=== PATIENT | female | born 1955 | race Caucasian/White ===

== ENCOUNTER → 2019-11-09 10:46 | Outpatient (CLI) | payer OTHER, SELFPAY ==
--- NOTE | ~2019-11-09 | MM_ITS ---
EXAMINATION: MM screening [facility] BI w emilie HISTORY: Screening mammogram TECHNIQUE: Craniocaudal and mediolateral oblique 3-D tomosynthesis images were obtained and synthetic 2-D images were generated. CAD analysis was submitted and interpreted. COMPARISON: 07/13/2018, 07/07/2017 bilateral digital screening mammogram examinations BREAST PARENCHYMAL COMPOSITION: There are scattered areas of fibroglandular density. FINDINGS: Stable mild fibroglandular asymmetry, likely related to history of prior benign right breas t biopsies. There is no evidence of suspicious mass, calcification, or architectural distortion to nunez ggest malignancy in either breast. There has been no suspicious interval change. IMPRESSION: 1. No mammographic evidence of malignancy. 2. Recommend routine screening mammography in one year. BI-RADS Category 2: Benign finding(s). Reviewed, dictated and finalized at location A.
--- NOTE | ~2019-11-09 | DEXA_ITS ---
Bone Density Report Name: Sonya Villarreal Age: 64 Sex: Female Ethnicity: White Date of : 1955 Indication: osteopenia; height loss; postmenopausal Referring Provider: JUDD TRINIDAD Study: Bone densitometry was performed. Exam Date: November 09, 2019 Accession number: [id number] Bone Density: Region BMD T-score Z-score Classification AP Spine (L1-L4) 0.878 -1.5 0.2 Osteopenia Femoral Neck (Left) 0.686 -1.5 0.0 Osteopenia Total Hip (Left) 0.757 -1.5 -0.3 Osteopenia Femoral Neck (Right) 0.685 -1.5 0.0 Osteopenia Total Hip (Right) 0.764 -1.5 -0.3 Osteopenia Total Hip Mean 0.761 -1.5 -0.3 Osteopenia World Health Organization criteria for BMD impression classify patients as: Normal (T-score at or above -1.0), Osteopenia (T-score between -1.0 and -2.5), or Osteoporosis (T-score at or below -2.5). 10-year Fracture Risk(1): Major Osteoporotic Fracture 8.6% Hip Fracture 0.8% Reported Risk Factors: [place] (), Neck BMD=0.685, BMI=25.0 (1) FRAX(R) Version 3.08. Fracture probability calculated for an untreated patient. Fracture probability may be lower if the patient has received treatment. Previous Exams: Region Exam Age BMD T-score BMD Change BMD Change Date g/cm2 vs Baseline vs Previous AP Spine(L1-L4) 11/09/2019 64 0.878 -1.5 0.048* -0.052* 07/07/2017 61 0.929 -1.1 0.100* 0.038* 07/02/2015 59 0.891 -1.4 0.062* -0.034* 06/19/2012 56 0.925 -1.1 0.096* 0.039* 06/03/2010 54 0.887 -1.5 0.057* 0.057* 05/24/2008 52 0.829 -2.0 Total Hip(Left) 11/09/2019 64 0.757 -1.5 -0.051* -0.080* 07/07/2017 61 0.837 -0.9 0.029* 0.011 07/02/2015 59 0.825 -1.0 0.018 -0.031* 06/19/2012 56 0.856 -0.7 0.049* 0.040* 06/03/2010 54 0.817 -1.0 0.009 0.009 05/24/2008 52 0.808 -1.1 Total Hip(Right) 11/09/2019 64 0.764 -1.5 -0.039* -0.051* 07/07/2017 61 0.816 -1.0 0.012 -0.006 07/02/2015 59 0.821 -1.0 0.018 -0.002 06/19/2012 56 0.823 -1.0 0.020 0.013 06/03/2010 54 0.811 -1.1 0.007 0.007 05/24/2008 52 0.803 -1.1 *Denotes significance at 95% confidence level, LSC for AP Spine = 0.022 g/cm2, LSC for Total Hip = 0.027 g/cm2 Clinical Information Provided by Patient:
== END ==
PROVIDERS: Visit Provider Obstetrics & Gynecology Gynecology
DX: Z12.31 Encounter for screening mammogram for malignant neoplasm of breast (principal); Z78.0 Asymptomatic menopausal state; M85.88 Other specified disorders of bone density and structure, other site; M85.852 Other specified disorders of bone density and structure, left thigh; M85.851 Other specified disorders of bone density and structure, right thigh
CPT/HCPCS: 77063; 77067; 77080

== ENCOUNTER 2020-04-30 14:40 | Emergency (ER) | payer OTHER, SELFPAY ==
--- NOTE | ~2020-04-30 | XR_ITS ---
EXAMINATION: XR ankle LT min 3V DATE: 04/30/2020 14:51 INDICATION: Left ankle pain. TECHNIQUE: 4 views of left ankle were obtained. COMPARISON: Left ankle radiographs 02/26/2014 FINDINGS: Bone alignment is normal. No fracture. Joint spaces are well maintained. IMPRESSION: 1. No fracture. Reviewed, dictated and finalized at location A. IMPRESSION: 1. No fracture.
--- NOTE | 2020-04-30 14:49 | ED.LOWEXIN ---
HPI - Extremity Injury (Lower) General Chief Complaint: Extremity Injury, Lower Stated Complaint: L ANKLE INJURY Time Seen by Provider: 04/30/20 14:49 Source: patient and RN notes reviewed History of Present Illness HPI Narrative: Patient is 64-year-old female who presents the urgent care with complaints of left ankle pain and swelling. 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 Patient states that she rolled the left ankle and did hit her head on a cabinet. Patient states that initially she felt some nausea and lightheadedness which is since subsided. Patient denies of any headache, loss of consciousness, nausea or vomiting. States that she put ice on the injury but has not taken anything oral for pain. Patient states the incident occurred at 1230 and she was able to drive herself to the facility. No other acute complaints or injuries. No acute distress noted. Patient aware of the plan of care. Some parts of this dictation were generated by voice recognition software and may contain typographical and/or grammatical inaccuracies. Related Data Home Medications Medication Instructions Recorded Confirmed ergocalciferol (vitamin D2) 04/30/20 fluticasone propionate [Flonase] 1 spray INTRANASAL BID 04/30/20 04/30/20 Allergies Allergy/AdvReac Type Severity Reaction Status Date / Time No Known Allergies Allergy Unverified 06/02/17 09:02 Review of Systems Review of Systems: Narrative: CONSTITUTIONAL: Denies fever, chills, or sweats. EYES: Denies visual changes, redness, or discharge. ENT: Denies rhinorrhea, congestion, sore throat, or otalgia. CARDIOVASCULAR: Denies chest pain, palpitations, or edema. RESPIRATORY: Denies cough or dyspnea. GASTROINTESTINAL: Denies abdominal pain, nausea, vomiting, or diarrhea. GENITOURINARY: Denies dysuria or hematuria. SKIN: Denies rash or itching. MUSCULOSKELETAL: Reports of left ankle pain and swelling NEUROLOGIC: Denies headache, numbness, or weakness. All other systems reviewed are negative, except as documented in HPI. PMFSH Comments At the time of my signature, I reviewed and agree with the nursing past medical, surgical, social, and family history. There is no relevant family history pertinent to the patient complaint. Exam Narrative: Exam Narrative: GENERAL: This is a well-nourished, well-developed patient, in no apparent distress. HEAD: normocephalic, atraumatic. EYES: PERRL. Sclera clear/white. Vision is grossly intact. EARS: External ears normal NOSE: External nose normal with no obvious nasal discharge, nares without redness, no rhinorrhea. THROAT: Mucous membranes moist NECK: Neck supple SKIN: warm, intact with no suspicious lesions or rash, good texture and turgor. NEURO: awake, alert, and oriented to person, place and time. There were no obvious focal neurologic abnormalities. EXTREMITIES: Mild to moderate edema without ecchymosis, erythema or notable deformity to the left lateral malleolus. Range of motion within normal limits with mild exacerbated pain on left lower extremity flexion. Ambulation within normal limits. Positive strong left pedal pulse with capillary refill less than 2 seconds. Course Vital Signs Vital signs: Vital Signs Temperature 97 F L 04/30/20 14:50 Pulse Rate 87 04/30/20 14:50 Respiratory Rate 16 04/30/20 14:50 Blood Pressure 120/61 04/30/20 14:50 Pulse Oximetry 100 04/30/20 14:50 Temperature 97 F L 04/30/20 14:50 Pulse Rate 87 04/30/20 14:50 Respiratory Rate 16 04/30/20 14:50 Blood Pressure 120/61 04/30/20 14:50 Pulse Oximetry 100 04/30/20 14:50 Reviewed MDM - Extremity Injury (Lower) MDM Narrative Medical decision making narrative: Reviewed x-ray results with the patient. Patient is aware that there is no bone abnormality or fracture. Advised patient to keep the foot elevated and use ice/Tylenol/ibuprofen as needed for pain and comfort. Avoid any strenuous activit
[2020-04-30 14:50] VITALS: BP 120/61; PULSE 87; RESP 16; TEMP 36.1; O2SAT 100
== END 2020-04-30 15:09 | disposition home or self-care (01) ==
PROVIDERS: Emergency Provider Nurse Practitioner Family
DX: S93.402A Sprain of unspecified ligament of left ankle, initial encounter (principal); S96.912A Strain of unspecified muscle and tendon at ankle and foot level, left foot, initial encounter; W01.0XXA Fall on same level from slipping, tripping and stumbling without subsequent striking against object, initial encounter; Y99.0 Civilian activity done for income or pay
CPT/HCPCS: 73610; 99213; G0463

== ENCOUNTER → 2020-11-27 07:13 | Outpatient (CLI) | payer OTHER, SELFPAY ==
--- NOTE | ~2020-11-27 | MM_ITS ---
EXAMINATION: MM screening [facility] BI w emilie HISTORY: Screening TECHNIQUE: Craniocaudal and mediolateral oblique 3-D tomosynthesis images were obtained and synthetic 2-D images were generated. CAD analysis was submitted and interpreted. COMPARISON: Comparison to multiple prior studies sequentially, with oldest reviewed study dated 07/06. BREAST PARENCHYMAL COMPOSITION: There are scattered areas of fibroglandular density. FINDINGS: There is no evidence of suspicious mass, calcification, or architectural distortion to sugg est malignancy in either breast. There has been no suspicious interval change. IMPRESSION: 1. No mammographic evidence of malignancy. 2. Recommend routine screening mammography in one year. BI-RADS Category 1: Negative Reviewed, dictated and finalized at location A.
== END ==
PROVIDERS: Visit Provider Nurse Practitioner
DX: Z12.31 Encounter for screening mammogram for malignant neoplasm of breast (principal)
CPT/HCPCS: 77063; 77067

== ENCOUNTER → 2021-11-27 07:28 | Outpatient (CLI) | payer OTHER, SELFPAY ==
--- NOTE | ~2021-11-27 | MM_ITS ---
EXAMINATION: MM screening [facility] BI w emilie HISTORY: Screening TECHNIQUE: Craniocaudal and mediolateral oblique 3-D tomosynthesis images were obtained and synthetic 2-D images were generated. CAD analysis was submitted and interpreted. COMPARISON: Comparison to multiple prior studies sequentially, with oldest reviewed study dated 07/06. BREAST PARENCHYMAL COMPOSITION: There are scattered areas of fibroglandular density. FINDINGS: There is a focal asymmetry posteriorly and laterally in the right breast on CC view. The le ft breast is stable without evidence for malignancy. IMPRESSION: 1. Focal right breast asymmetry located posteriorly and laterally on the CC view. 2. Recommend right exaggerated cc view with spot views and mediolateral view. Possible additional rig ht breast ultrasound. BI-RADS Category 0: Incomplete: Needs additional imaging evaluation. Reviewed, dictated and finalized at location A. IMPRESSION: 1. Focal right breast asymmetry located posteriorly and laterally on the CC vie w. 2. Recommend right exaggerated cc view with spot views and mediolateral view. P ossible additional right breast ultrasound. BI-RADS Category 0: Incomplete: Needs additional imaging evaluation.
== END ==
PROVIDERS: PCP Hospitalist; Visit Provider Obstetrics & Gynecology Gynecology
DX: Z12.31 Encounter for screening mammogram for malignant neoplasm of breast (principal); R92.8 Other abnormal and inconclusive findings on diagnostic imaging of breast
CPT/HCPCS: 77063; 77067

== ENCOUNTER → 2021-12-14 07:41 | Outpatient (CLI) | payer OTHER, SELFPAY ==
--- NOTE | ~2021-12-14 | MM_ITS ---
EXAMINATION: MM diagnostic [facility] RT w emilie HISTORY: Follow-up right breast asymmetry TECHNIQUE: Additional 3-D tomosynthesis images of the right breast were performed and synthetic 2-D i mages were generated. CAD analysis was submitted and interpreted. COMPARISON: 11/27/2021 BREAST PARENCHYMAL COMPOSITION: Breast composition is almost entirely fatty FINDINGS: There are no suspicious masses, calcifications or architectural distortion in the right rose ast to suggest malignancy. The focal asymmetry corresponds to the pectoralis muscle, best seen on exa ggerated cc view. IMPRESSION: 1. No mammographic evidence for malignancy in the right breast. 2. Routine yearly screening mammogram and regular clinical breast examination are recommended. BI-RADS Category 1: Negative Reviewed, dictated and finalized at location A. IMPRESSION: 1. No mammographic evidence for malignancy in the right breast. 2. Routine yearly screening mammogram and regular clinical breast examination a re recommended. BI-RADS Category 1: Negative
== END ==
PROVIDERS: PCP Hospitalist; Visit Provider Obstetrics & Gynecology Gynecology
DX: R92.8 Other abnormal and inconclusive findings on diagnostic imaging of breast (principal)
CPT/HCPCS: 77061; 77065; G0279

== ENCOUNTER → 2022-01-15 08:44 | Outpatient (CLI) | payer OTHER, SELFPAY ==
--- NOTE | ~2022-01-15 | DEXA_ITS ---
Bone Density Report Name: SUSAN AVENDAÑO Age: 66 Sex: Female Ethnicity: White Date of : 1955 Indication: osteopenia; postmenopausal Referring Provider: JUDD TRINIDAD Study: Bone densitometry was performed. Exam Date: January 15, 2022 Accession number: [id number] Bone Density: Region BMD T-score Z-score Classification AP Spine (L1-L4) 0.834 -1.9 -0.1 Osteopenia Femoral Neck (Left) 0.633 -1.9 -0.4 Osteopenia Total Hip (Left) 0.755 -1.5 -0.2 Osteopenia Femoral Neck (Right) 0.685 -1.5 0.1 Osteopenia Total Hip (Right) 0.760 -1.5 -0.2 Osteopenia Total Hip Mean 0.758 -1.5 -0.2 Osteopenia World Health Organization criteria for BMD impression classify patients as: Normal (T-score at or above -1.0), Osteopenia (T-score between -1.0 and -2.5), or Osteoporosis (T-score at or below -2.5). 10-year Fracture Risk(1): Major Osteoporotic Fracture 10% Hip Fracture 1.6% Reported Risk Factors: [place] (), Neck BMD=0.633, BMI=29.2 (1) FRAX(R) Version 3.08. Fracture probability calculated for an untreated patient. Fracture probability may be lower if the patient has received treatment. Previous Exams: Region Exam Age BMD T-score BMD Change BMD Change Date g/cm2 vs Baseline vs Previous AP Spine(L1-L4) 01/15/2022 66 0.834 -1.9 0.005 -0.043* 11/09/2019 64 0.878 -1.5 0.048* -0.052* 07/07/2017 61 0.929 -1.1 0.100* 0.038* 07/02/2015 59 0.891 -1.4 0.062* -0.034* 06/19/2012 56 0.925 -1.1 0.096* 0.039* 06/03/2010 54 0.887 -1.5 0.057* 0.057* 05/24/2008 52 0.829 -2.0 Total Hip(Left) 01/15/2022 66 0.755 -1.5 -0.052* -0.001 11/09/2019 64 0.757 -1.5 -0.051* -0.080* 07/07/2017 61 0.837 -0.9 0.029* 0.011 07/02/2015 59 0.825 -1.0 0.018 -0.031* 06/19/2012 56 0.856 -0.7 0.049* 0.040* 06/03/2010 54 0.817 -1.0 0.009 0.009 05/24/2008 52 0.808 -1.1 Total Hip(Right) 01/15/2022 66 0.760 -1.5 -0.043* -0.004 11/09/2019 64 0.764 -1.5 -0.039* -0.051* 07/07/2017 61 0.816 -1.0 0.012 -0.006 07/02/2015 59 0.821 -1.0 0.018 -0.002 06/19/2012 56 0.823 -1.0 0.020 0.013 06/03/2010 54 0.811 -1.1 0.007 0.007 05/24/2008 52 0.803 -1.1 *Denotes significance at 95% confidenc
== END ==
PROVIDERS: PCP Hospitalist; Visit Provider Obstetrics & Gynecology Gynecology
DX: Z78.0 Asymptomatic menopausal state (principal); M85.88 Other specified disorders of bone density and structure, other site; M85.852 Other specified disorders of bone density and structure, left thigh; M85.851 Other specified disorders of bone density and structure, right thigh
CPT/HCPCS: 77080

== ENCOUNTER 2022-09-08 15:11 | Outpatient (CLI) | payer OTHER, SELFPAY ==
[2022-09-08 17:18] LABS: Basophils Absolute Auto 0.1 K/mm3 (0.0-0.1); Eosinophils Absolute Auto 0.1 K/mm3 (0-0.3); Hematocrit 42.1 % (37.0-47.0); Immature Granulocyte Absolute 0.02 K/mm3 (0.00-0.031); Immature Granulocyte Percent A 0.3 % (0-0.5); Lymphocytes Absolute Auto 1.82 K/mm3 (0.9-3.2); Lymphocytes Percent Auto 25.9 % (18.3-44.2); Mean Corpuscular HGB Conc 33.3 g/dl (32-36); Mean Corpuscular Volume 93.3 fl (80-100); Mean Platelet Volume 9.1 fl (7.4-10.4); Monocytes Absolute Auto 0.6 K/mm3 (0.1-0.6); Monocytes Percent Auto 8.4 % (2.6-8.5); Neutrophils Absolute Auto 4.4 K/mm3 (1.3-6.7); Neutrophils Percent Auto 62.4 % (45.5-73.1); Platelet Count Result 306 k/mm3 (150-375); Red Blood Count 4.51 M/mm3 (4.2-5.4); Red Cell Distribution Width 12.5 % (11.5-14.5)
[2022-09-12 22:06] LABS: Lyme Disease Ab (IgM), Blot Negative (Negative); Lyme Disease Ab(IgG), Blot Negative (Negative)
== END 2022-09-08 15:12 | disposition home or self-care (01) ==
PROVIDERS: PCP Hospitalist; Visit Provider Hospitalist
DX: R20.2 Paresthesia of skin (principal); R91.1 Solitary pulmonary nodule
CPT/HCPCS: 36415; 85025; 86617

== ENCOUNTER → 2022-11-30 07:18 | Outpatient (CLI) | payer OTHER, SELFPAY ==
--- NOTE | ~2022-11-30 | MM_ITS ---
EXAMINATION: MM screening [facility] BI w emilie HISTORY: Screening TECHNIQUE: Craniocaudal and mediolateral oblique 3-D tomosynthesis images were obtained and synthetic 2-D images were generated. CAD analysis was submitted and interpreted. COMPARISON: Comparison to multiple prior studies sequentially, with oldest reviewed study dated 07/07. BREAST PARENCHYMAL COMPOSITION: The breasts are almost entirely fatty. FINDINGS: Partial visualization of the right pectoralis muscle noted on CC view laterally with simila r appearance to 11/27/2021 and 11/27/2020. There is no evidence of suspicious mass, calcification, or architectural distortion to suggest malignancy in either breast. There has been no suspicious interv al change. IMPRESSION: 1. No mammographic evidence of malignancy. 2. Recommend routine screening mammography in one year. BI-RADS Category 1: Negative Reviewed, dictated and finalized at location A.
== END ==
PROVIDERS: PCP Hospitalist; Visit Provider Nurse Practitioner
DX: Z12.31 Encounter for screening mammogram for malignant neoplasm of breast (principal)
CPT/HCPCS: 77063; 77067

== ENCOUNTER 2023-12-23 07:38 | Outpatient (CLI) | payer OTHER, SELFPAY ==
--- NOTE | ~2023-12-23 | MM_ITS ---
EXAMINATION: MM screening [facility] BI w emilie HISTORY: Screening TECHNIQUE: Craniocaudal and mediolateral oblique 3-D tomosynthesis images were obtained and synthetic 2-D images were generated. CAD analysis was submitted and interpreted. COMPARISON: Comparison to multiple prior studies sequentially, with oldest reviewed study dated 07/13. BREAST PARENCHYMAL COMPOSITION: Not dense: There are scattered areas of fibroglandular density. FINDINGS: There are developing small masses in the lower inner quadrant of the left breast, middle th ird. The right breast is stable without evidence for malignancy. IMPRESSION: 1. Developing small left breast masses in the lower inner quadrant, middle third. 2. Additional mammographic views and possible breast ultrasound are recommended. BI-RADS Category 0: Incomplete: Needs additional imaging evaluation. 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 Developing small left breast masses in the lower inner quadrant, middle thir d. 2. Additional mammographic views and possible breast ultrasound are recommended . BI-RADS Category 0: Incomplete: Needs additional imaging evaluation.
== END 2023-12-23 07:39 | disposition home or self-care (01) ==
LOC: MICIMG 07:38
PROVIDERS: PCP Nurse Practitioner; Visit Provider Nurse Practitioner
DX: Z12.31 Encounter for screening mammogram for malignant neoplasm of breast (principal); R92.8 Other abnormal and inconclusive findings on diagnostic imaging of breast
CPT/HCPCS: 77063; 77067

== ENCOUNTER 2024-01-18 08:27 | Outpatient (CLI) | payer OTHER, SELFPAY ==
--- NOTE | ~2024-01-18 | MMUS_ITS ---
EXAMINATION: US breast LT limited, MM diagnostic [facility] LT w emilie HISTORY: Follow-up left breast masses TECHNIQUE: Additional 3-D tomosynthesis images of the left breast were performed and synthetic 2-D im ages were generated. CAD analysis was submitted and interpreted. High resolution Limited left breast ultrasound was performed. COMPARISON: Comparison to multiple prior studies sequentially, with oldest reviewed study dated 11/08. BREAST PARENCHYMAL COMPOSITION: Not dense: There are scattered areas of fibroglandular density. FINDINGS: MAMMOGRAPHIC FINDINGS: There are 2 small radiolucent masses measuring 4 mm or less in the medial aspect of the left breast, likely benign. ULTRASOUND: Limited left breast ultrasound: At 11:00, 12 cm from the nipple there is a 4 mm cyst. No suspicious s onographic abnormalities to suggest malignancy. IMPRESSION: 1. Probable benign left breast masses seen on mammography. A small 4 mm cyst is present by ultrasound at 11:00, 12 cm from the nipple which may correspond to one of the masses. 2. Recommend 6 month follow-up diagnostic left mammogram BI-RADS category 3, probably benign findings. 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 Probable benign left breast masses seen on mammography. A small 4 mm cyst is present by ultrasound at 11:00, 12 cm from the nipple which may correspond to one of the masses. 2. Recommend 6 month follow-up diagnostic left mammogram BI-RADS category 3, probably benign findings.
== END 2024-01-18 08:28 | disposition home or self-care (01) ==
LOC: MICIMG 08:28
PROVIDERS: PCP Nurse Practitioner; Visit Provider Nurse Practitioner
DX: R92.8 Other abnormal and inconclusive findings on diagnostic imaging of breast (principal)
CPT/HCPCS: 76642; 77061; 77065; G0279

== ENCOUNTER 2024-07-11 07:59 | Outpatient (CLI) | payer OTHER, SELFPAY ==
--- NOTE | ~2024-07-11 | MM_ITS ---
EXAMINATION: MM diagnostic [facility] LT w emilie HISTORY: Follow-up left breast mass TECHNIQUE: Additional 3-D tomosynthesis images of the left breast were performed and synthetic 2-D im ages were generated. CAD analysis was submitted and interpreted. COMPARISON: Comparison to multiple prior studies sequentially, with oldest reviewed study dated 11/14. BREAST PARENCHYMAL COMPOSITION: Not dense: There are scattered areas of fibroglandular density. FINDINGS: There has been near complete resolution of nodular asymmetries in the central aspect of the left breast. No new masses, calcifications or architectural distortion to suggest malignancy. IMPRESSION: 1. No evidence for malignancy in the left breast. 2. Routine yearly screening mammogram and regular clinical breast examination are recommended. BI-RADS Category 2: Benign finding(s). Reviewed, dictated and finalized at location A. IMPRESSION: 1. No evidence for malignancy in the left breast. 2. Routine yearly screening mammogram and regular clinical breast examination a re recommended. BI-RADS Category 2: Benign finding(s).
== END 2024-07-11 08:00 | disposition home or self-care (01) ==
LOC: MICIMG 08:00
PROVIDERS: PCP Family Medicine; Visit Provider Obstetrics & Gynecology Gynecology
DX: N63.20 Unspecified lump in the left breast, unspecified quadrant (principal)
CPT/HCPCS: 77061; 77065; G0279

== ENCOUNTER 2025-01-07 15:25 | Outpatient (CLI) | payer MEDICARE, SELFPAY ==
--- NOTE | ~2025-01-07 | MM_ITS ---
EXAMINATION: MM screening [facility] BI w emilie HISTORY: Screening TECHNIQUE: Craniocaudal and mediolateral oblique 3-D tomosynthesis images were obtained and synthetic 2-D images were generated. CAD analysis was submitted and interpreted. COMPARISON: Comparison to multiple prior studies sequentially, with oldest reviewed study dated 11/27/2021. BREAST PARENCHYMAL COMPOSITION: Not dense: There are scattered areas of fibroglandular density. FINDINGS: There is no mammographic evidence for malignancy in the right breast. Stable benign-appearing masses lower inner quadrant of the left breast. No new masses, calcifications or architectural distortion in the left breast to suggest malignancy. IMPRESSION: 1. Stable bilateral mammogram. Benign-appearing left breast masses lower inner quadrant are unchanged from prior study. 2. Routine yearly screening mammogram and regular clinical breast examination are recommended. BI-RADS Category 2: Benign finding(s). 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 Stable bilateral mammogram. Benign-appearing left breast masses lower inner quadrant are unchanged from prior study. 2. Routine yearly screening mammogram and regular clinical breast examination a re recommended. BI-RADS Category 2: Benign finding(s).
== END 2025-01-07 15:26 | disposition home or self-care (01) ==
LOC: MICIMG 15:27
PROVIDERS: PCP Family Medicine; Visit Provider Nurse Practitioner
DX: Z12.31 Encounter for screening mammogram for malignant neoplasm of breast (principal); N63.24 Unspecified lump in the left breast, lower inner quadrant; N63.14 Unspecified lump in the right breast, lower inner quadrant
CPT/HCPCS: 77063; 77067

== ENCOUNTER 2025-01-15 07:44 | Outpatient (CLI) | payer MEDICARE, SELFPAY ==
--- NOTE | ~2025-01-15 | DEXA_ITS ---
Bone Density Report Name: SUSAN AVENDAÑO Age: 69 Sex: Female Ethnicity: White Date of : 1955 Indication: osteopenia; Referring Provider: THIEN, KRISTINA Study: Bone densitometry was performed. Exam Date: January 15, 2025 Accession number: [id number] Bone Density: Region BMD T-score Z-score Classification AP Spine(L1-L4) 0.855 -1.7 0.3 Osteopenia Femoral Neck (Left) 0.608 -2.2 -0.4 Osteopenia Total Hip (Left) 0.732 -1.7 -0.3 Osteopenia Femoral Neck (Right) 0.611 -2.1 -0.4 Osteopenia Total Hip (Right) 0.735 -1.7 -0.2 Osteopenia Total Hip Mean 0.734 -1.7 -0.3 Osteopenia World Health Organization criteria for BMD impression classify patients as: Normal (T-score at or above -1.0), Osteopenia (T-score between -1.0 and -2.5), or Osteoporosis (T-score at or below -2.5). 10-year Fracture Risk(1): Major Osteoporotic Fracture 13% Hip Fracture 2.5% Reported Risk Factors: [place] (), Neck BMD=0.608, BMI=25.1 (1) FRAX(R) Version 3.08. Fracture probability calculated for an untreated patient. Fracture probability may be lower if the patient has received treatment. Previous Exams: -- Region Exam Age BMD T-score BMD Change BMD Change Date g/cm2 vs Baseline vs Previous -- AP Spine (L1-L4) 01/15/2025 69 0.855 -1.7 3.1%* 2.5% 01/15/2022 66 0.834 -1.9 0.6% -4.9%* 11/09/2019 64 0.878 -1.5 5.8%* -5.6%* 07/07/2017 61 0.929 -1.1 12.0%* 4.3%* 07/02/2015 59 0.891 -1.4 7.5%* -3.7%* 06/19/2012 56 0.925 -1.1 11.5%* 4.4%* 06/03/2010 54 0.887 -1.5 6.9%* 6.9%* 05/24/2008 52 0.829 -2.0 Total Hip(Left) 01/15/2025 69 0.732 -1.7 -9.3%* -3.0% 01/15/2022 66 0.755 -1.5 -6.5%* -0.2% 11/09/2019 64 0.757 -1.5 -6.3%* -9.6%* 07/07/2017 61 0.837 -0.9 3.6%* 1.4% 07/02/2015 59 0.825 -1.0 2.2% -3.6%* 06/19/2012 56 0.856 -0.7 6.1%* 4.9%* 06/03/2010 54 0.817 -1.0 1.1% 1.1% 05/24/2008 52 0.808 -1.1 Total Hip(Right) 01/15/2025 69 0.735 -1.7 -8.4%* -3.3% 01/15/2022 66 0.760 -1.5 -5.3%* -0.5% 11/09/2019 64 0.764 -1.5 -4.9%* -6.3%* 07/07/2017 61 0.816 -1.0 1.5% -0.7% 07/02/2015 59 0.821 -1.0 2.2% -0.3% 06/19/2012 56 0.823 -1.0 2.5% 1.6% 06/03/2010 54 0.811 -1.1 0.9% 0.9% 05/24/2008 52 0.803 -1.1 -- *Denotes significance at 95% confidence level, LSC for AP Spine = 0.022 g/cm2, LSC for Total Hip = 0.027 g/cm2 Clinical Information Provided by Patient: Has used the following medications: Boniva (i.e. ibandronate), Vitamin D, Calcium Patient maximum height was 65 Menopause Age: 50 No regular weight bearing exercise Drinks caffeinated beverages Onset of menses at age 13 Number of children 2 Impression: The patient has low bone mass, based on the Left Femoral Neck T-score. The patient has an estimated ten-year risk of hip fracture of 2.5% and an estimated ten-year risk of major fracture of 13%, based on the WHO FRAX algorithm. No significant bone loss was observed. Discussion: BONE DENSITY IS LOW AT ONE OR MORE SKELETAL SITES. This patient's lowest T-score is low at one or more skeletal sites. It meets the World Health Organization's (WHO) criteria for ?low bone mass? (T-score between -1.0 and -2.5). The patient's 10-year risk of fracture as calculated by FRAX is less than the threshold where pharmacological therapy is recommended by the National Osteoporosis Foundation (NOF). However, all treatment decisions require clinical judgment and consideration of individual patient factors, including patient preferences, comorbidities, previous drug use, risk factors not captured in the FRAX model (e.g., frailty, falls, vitamin D deficiency, increased bone turnover, interval significant decline in bone density) and possible under or overestimation of fracture risk by FRAX. The patient should follow a healthful lifestyle (good nutrition with adequate calcium and vitamin D, and appropriate weight-bearing exercise). Follow-Up: Consider repeating this study in 2 to 3 years to reassess this patient's status, or sooner if there is some new clinical indication. Reported by: JAVON on 01/15/2025 8:07:00 AM. Reviewed, dictated and finalized at location A.
== END 2025-01-15 07:45 | disposition home or self-care (01) ==
LOC: MICIMG 07:44
PROVIDERS: PCP Family Medicine; Visit Provider Nurse Practitioner
DX: M85.89 Other specified disorders of bone density and structure, multiple sites (principal); Z78.0 Asymptomatic menopausal state
CPT/HCPCS: 77080